=== PATIENT | male | born 1945 | race Caucasian/White ===

== ENCOUNTER 2017-06-22 10:24 | Emergency (ER) | payer MEDICARE, OTHER ==
[~2017-06-22] VITALS: Ht 172.7 cm; Wt 73.5 kg
[~2017-06-22 10:24] MED LIST: ALLO100T PO; AMIO200T2 PO; ASPI-807 PO; ATOR20TA PO; CINA30TA PO; CLON0.5T23 PO; DIGO125T PO; DOCU100C58 PO; METO25TA20 PO; METO50TA7 PO; SEVE800T8 PO
[2017-06-22 10:34] VITALS: BP 90/50
== END 2017-06-22 10:56 | disposition home or self-care (01) ==
LOC: ER 10:28
DX: H92.01 Otalgia, right ear (principal); I12.0 Hypertensive chronic kidney disease with stage 5 chronic kidney disease or end stage renal disease; N18.6 End stage renal disease; Z79.82 Long term (current) use of aspirin; Z99.2 Dependence on renal dialysis
CPT/HCPCS: 99281; A4606; Z7502; Z7610

== ENCOUNTER 2017-12-18 05:32 | Emergency (ER) | payer MEDICARE, OTHER ==
[~2017-12-18] VITALS: Ht 172.7 cm; Wt 68.0 kg
[~2017-12-18 05:32] MED LIST changes: -AMIO200T2 PO; +AMIO200T4 PO; -CINA30TA PO; +CINA30TA2 PO
--- NOTE | 2017-12-18 05:32 | NUR ---
PT BIB SELF, PT C/O LEFT EAR PAIN 5/10 30 MINUTES [employer] CERTIFIED [employer]. NO SOS VSS NAD. A/OX4 SITTING IN BED COMFORTABLY. WILL CONTINUE TO MONITOR FOR ANY CHANGES DURING THE SHIFT.
--- NOTE | 2017-12-18 06:08 | NUR ---
ER AT BEDSIDE FOR EVAL
[2017-12-18 06:40] VITALS: BP 120/64
== END 2017-12-18 06:41 | disposition home or self-care (01) ==
LOC: ER 05:32
DX: H72.92 Unspecified perforation of tympanic membrane, left ear (principal); I12.0 Hypertensive chronic kidney disease with stage 5 chronic kidney disease or end stage renal disease; N18.6 End stage renal disease; Z79.01 Long term (current) use of anticoagulants; Z79.82 Long term (current) use of aspirin; Z99.2 Dependence on renal dialysis
CPT/HCPCS: 99283; A4606; Z7610

== ENCOUNTER 2019-01-17 11:41 | Emergency (ER) | payer MEDICARE, OTHER ==
[~2019-01-17] VITALS: Ht 165.1 cm; Wt 59.0 kg
--- NOTE | 2019-01-17 12:00 | NUR ---
LLQ abd pain s/p coughing fit last week. STATES PAIN IS SHARP, 2/10 WHEN LAYING DOWN, AND 9/10 WHEN COUGHING. HAS DIALYSIS TThS, WITH ACCESS AT LEFT UPPER ARM. HOOKED TO MONITOR AND MADE COMFORTABLE. AT BEDSIDE. SEEN BY DR SAMPSON. AWAITING ORDERS.
--- NOTE | 2019-01-17 12:09 | NUR ---
PT TAKEN TO CT VIA [facility]
--- NOTE | 2019-01-17 12:20 | NUR ---
PT BACK FROM CT. JANIS WELL. WILL CONT TO MONITOR.
--- NOTE | 2019-01-17 13:40 | NUR ---
Patient discharged to home in stable condition. Written and verbal after care instructions given. Patient verbalizes understanding of instruction.
[2019-01-17 14:10] VITALS: BP 110/62
[2019-01-18] MEDS ORDERED: KETOROLAC TROMETHAMINE INJ 30 MG/ML VIAL ONE (20:53)
== END 2019-01-17 13:40 | disposition home or self-care (01) ==
LOC: ER 11:41
DX: S39.011A Strain of muscle, fascia and tendon of abdomen, initial encounter (principal); I10 Essential (primary) hypertension; I12.0 Hypertensive chronic kidney disease with stage 5 chronic kidney disease or end stage renal disease; N18.6 End stage renal disease; G47.00 Insomnia, unspecified; Z99.2 Dependence on renal dialysis; Z90.89 Acquired absence of other organs; Z79.82 Long term (current) use of aspirin; X58.XXXA Exposure to other specified factors, initial encounter; Y93.89 Activity, other specified; Y92.89 Other specified places as the place of occurrence of the external cause; Y99.8 Other external cause status
CPT/HCPCS: J1885

== ENCOUNTER 2019-05-09 14:56 | Emergency (ER) | payer MEDICARE, OTHER ==
[~2019-05-09] VITALS: Ht 165.1 cm; Wt 59.0 kg
[2019-05-09 15:05] VITALS: BP 112/64
--- NOTE | 2019-05-09 15:15 | NUR ---
AT BEDSIDE FOR EVAL.
--- NOTE | 2019-05-09 15:30 | NUR ---
PT IS WHEELED TO CT SCAN.
--- NOTE | 2019-05-09 16:57 | NUR ---
Patient discharged to home in stable condition. Written and verbal after care instructions given. Patient verbalizes understanding of instruction.
== END 2019-05-09 16:58 | disposition home or self-care (01) ==
LOC: ER 14:56
DX: R10.30 Lower abdominal pain, unspecified (principal); I12.0 Hypertensive chronic kidney disease with stage 5 chronic kidney disease or end stage renal disease; N18.6 End stage renal disease; G47.00 Insomnia, unspecified; Z99.2 Dependence on renal dialysis; Z90.89 Acquired absence of other organs; Z79.82 Long term (current) use of aspirin; Z79.899 Other long term (current) drug therapy

== ENCOUNTER 2019-05-31 09:32 | Emergency (ER) | payer MEDICARE, OTHER ==
[~2019-05-31] VITALS: Ht 165.1 cm; Wt 56.7 kg
[2019-05-31 09:43] VITALS: BP 146/80
--- NOTE | 2019-05-31 09:50 | NUR ---
UNABLE TO GET TEMPERATURE READINGS TWICE, PATIENT THEN REFUSED TO HAVE TEMPERATURE TAKEN AGAIN. DR. BACK AWARE.
== END 2019-05-31 10:00 | disposition home or self-care (01) ==
LOC: ER 09:34
DX: K40.90 Unilateral inguinal hernia, without obstruction or gangrene, not specified as recurrent (principal); G47.00 Insomnia, unspecified; I12.0 Hypertensive chronic kidney disease with stage 5 chronic kidney disease or end stage renal disease; N18.6 End stage renal disease; Z90.89 Acquired absence of other organs; Z60.2 Problems related to living alone; Z79.82 Long term (current) use of aspirin